=== PATIENT | female | born 1955 | race Caucasian/White ===

== ENCOUNTER 2021-11-05 12:30 | Inpatient (IN) | payer OTHER ==
[2021-11-05] MEDS ORDERED: ACETAMINOPHEN 1000 MG/100 ML BAG IVPB ONE (13:48)
[2021-11-05] MEDS ORDERED: ACETAMINOPHEN INJECTION 100 ML IVPB ONE (14:26)
[2021-11-05 14:43] LABS: BASO % 1.3 % (0-2.0); EOS % 0.6 % (0-4.5); HEMATOCRIT 38.9 % (32.4-45.2); HEMOGLOBIN 13.2 GM/dL (10.7-15.3); LYMPH % 17.1 % (8-40); MCH 32.7 pg (25.7-33.7); MEAN CELL VOLUME 96.1 fl (80-96); MEAN PLT VOLUME 7.6 fl (7.5-11.1); MONO % 6.2 % (3.8-10.2); NEUT % 74.8 % (42.8-82.8); PLATELET COUNT 674 10^3/uL (134-434); RBC 4.04 M/mm3 (3.60-5.2); RDW 13.9 % (11.6-15.6); WHITE BLOOD COUNT 10.8 K/mm3 (4.0-10.0)
[2021-11-05 14:53] LABS: INR 1.13 (0.83-1.09)
[2021-11-05 14:56] LABS: ACTIVATED PTT 30.5 SECONDS (25.2-36.5)
[2021-11-05 14:59] LABS: CHLORIDE 104 mmol/L (98-107); SODIUM 139 mmol/L (136-145)
[2021-11-05 15:03] LABS: BLOOD UREA NITROGEN 18.3 mg/dL (7-18); CALCIUM 10.8 mg/dL (8.5-10.1); CO2 26 mmol/L (21-32); GLUCOSE,RANDOM 107 mg/dL (74-106)
[2021-11-05 15:04] LABS: ALBUMIN 3.4 g/dl (3.4-5.0)
[2021-11-05 15:06] LABS: SGPT/ALT 37 U/L (13-61)
[2021-11-05 15:07] LABS: CREATININE 1.3 mg/dL (0.55-1.3); SGOT/AST 32 U/L (15-37)
[2021-11-05 15:08] LABS: BILIRUBIN,TOTAL 0.7 mg/dL (0.2-1); TOT PROT 7.6 g/dl (6.4-8.2)
[2021-11-05 15:09] LABS: ALK PHOS 103 U/L (45-117)
[2021-11-05 15:10] LABS: ANION GAP 9 MMOL/L (8-16)
[2021-11-05 16:02] LABS: EPI CELLS >36 /uL (0-25.1); HYALINE CASTS 4 /uL (0-3.1); PH,URINE 5.5 (5.0-8.0); URINE APPEARANCE CLEAR; URINE BACTERIA 51 /uL (0-1359); URINE BILIRUBIN NEGATIVE (NEGATIVE); URINE COLOR DK YELLOW; URINE GLUCOSE (UA) NEGATIVE (NEGATIVE); URINE KETONE TRACE (NEGATIVE); URINE LEUK ESTERASE TRACE (NEGATIVE); URINE NITRITE NEGATIVE (NEGATIVE); URINE PROTEIN NEGATIVE (NEGATIVE); URINE RBC 12 /uL (0-23.9); URINE UROBILINOGEN 0.2 mg/dL (0.2-1.0); URINE WBC 37 /uL (0-25.8)
[2021-11-05 16:08] LABS: HIV INTERPRETATION NEGATIVE (NEGATIVE)
[2021-11-05 16:30] LABS: CALCIUM 10.1 mg/dL (8.5-10.1)
[2021-11-05 16:31] LABS: BLOOD UREA NITROGEN 19.7 mg/dL (7-18)
[2021-11-05 16:34] LABS: CREATININE 1.3 mg/dL (0.55-1.3)
[2021-11-05 16:54] LABS: ERYTHROCYTE SEDIMENTATION RATE 87 mm/hr (0-30)
[2021-11-05] MEDS ORDERED: oxyCODONE HCL 5 MG TABLET ONE (18:35)
[2021-11-05] MEDS: oxyCODONE HCL 5 MG TABLET PO PRN (18:37)
[2021-11-05 23:56] VITALS: BMI 31.6
[2021-11-06] MEDS: oxyCODONE HCL 5 MG TABLET PO PRN ×3 (01:56→21:48)
[2021-11-06] MEDS: ACETAMINOPHEN 325 MG TABLET (FP) PO PRN (06:03)
[2021-11-06 10:12] LABS: BASO % 1.1 % (0-2.0); EOS % 1.2 % (0-4.5); HEMATOCRIT 35.4 % (32.4-45.2); HEMOGLOBIN 11.7 GM/dL (10.7-15.3); LYMPH % 23.8 % (8-40); MCH 31.8 pg (25.7-33.7); MCHC 33.1 g/dl (32.0-36.0); MEAN CELL VOLUME 96.3 fl (80-96); MEAN PLT VOLUME 7.9 fl (7.5-11.1); MONO % 7.5 % (3.8-10.2); NEUT % 66.4 % (42.8-82.8); PLATELET COUNT 603 10^3/uL (134-434); RBC 3.68 M/mm3 (3.60-5.2); RDW 13.7 % (11.6-15.6); WHITE BLOOD COUNT 9.1 K/mm3 (4.0-10.0)
[2021-11-06 10:43] LABS: BLOOD UREA NITROGEN 22.9 mg/dL (7-18); CALCIUM 9.4 mg/dL (8.5-10.1)
[2021-11-06 10:46] LABS: CREATININE 1.4 mg/dL (0.55-1.3); PHOSPHOROUS 4.2 mg/dL (2.5-4.9)
[2021-11-06] MEDS: VANCOMYCIN/WATER FOR INJ (PEG) 1,000 MG/200 ML BAG IVPB SCH (15:25)
[2021-11-06] MEDS: PIPERACILLIN/TAZOB 3.375 GM 3.375 GM in DEXTROSE 5%-WATER - 50 ML IVPB SCH ×2 (15:25→21:36)
[2021-11-06] MEDS ORDERED: LOSARTAN POTASSIUM 50 MG TABLET PO SCH (15:45)
[2021-11-06] MEDS ORDERED: VERAPAMIL HCL 240 MG E.R. TABLET PO SCH (15:45)
[2021-11-06] MEDS: CITALOPRAM HYDROBROMIDE 10 MG TABLET PO SCH (17:15)
[2021-11-06] MEDS: clonazePAM 0.5 MG TABLET PO SCH (21:37)
[2021-11-06] MEDS: ATORVASTATIN CA 20 MG TABLET (FP) PO SCH (21:37)
[2021-11-07] MEDS: PIPERACILLIN/TAZOB 3.375 GM 3.375 GM in DEXTROSE 5%-WATER - 50 ML IVPB SCH ×3 (01:30→19:06)
[2021-11-07] MEDS: VANCOMYCIN/WATER FOR INJ (PEG) 1,000 MG/200 ML BAG IVPB SCH ×2 (03:17→17:34)
[2021-11-07] MEDS: clonazePAM 0.5 MG TABLET PO SCH ×2 (09:13→21:18)
[2021-11-07] MEDS: VERAPAMIL HCL 240 MG E.R. TABLET PO SCH (09:14)
[2021-11-07] MEDS: oxyCODONE HCL 5 MG TABLET PO PRN ×2 (09:14→18:53)
[2021-11-07] MEDS: CITALOPRAM HYDROBROMIDE 10 MG TABLET PO SCH (09:14)
[2021-11-07] MEDS: SODIUM CHLORIDE 1,000 ML IV SCH (09:18)
[2021-11-07 16:29] LABS: HEMATOCRIT 34.1 % (32.4-45.2); HEMOGLOBIN 11.3 GM/dL (10.7-15.3); MCH 31.7 pg (25.7-33.7); MCHC 33.2 g/dl (32.0-36.0); MEAN CELL VOLUME 95.5 fl (80-96); MEAN PLT VOLUME 7.9 fl (7.5-11.1); PLATELET COUNT 573 10^3/uL (134-434); RBC 3.57 M/mm3 (3.60-5.2); RDW 13.6 % (11.6-15.6); WHITE BLOOD COUNT 10.5 K/mm3 (4.0-10.0)
[2021-11-07 16:55] LABS: BLOOD UREA NITROGEN 22.1 mg/dL (7-18); CALCIUM 9.3 mg/dL (8.5-10.1)
[2021-11-07 16:59] LABS: CREATININE 1.2 mg/dL (0.55-1.3)
[2021-11-07] MEDS: ATORVASTATIN CA 20 MG TABLET (FP) PO SCH (21:18)
[2021-11-08] MEDS: PIPERACILLIN/TAZOB 3.375 GM 3.375 GM in DEXTROSE 5%-WATER - 50 ML IVPB SCH ×2 (01:18→09:36)
[2021-11-08] MEDS: oxyCODONE HCL 5 MG TABLET PO PRN ×4 (03:17→21:58)
[2021-11-08] MEDS: VANCOMYCIN/WATER FOR INJ (PEG) 1,000 MG/200 ML BAG IVPB SCH (04:54)
[2021-11-08] MEDS: SODIUM CHLORIDE 1,000 ML IV SCH ×3 (04:54→21:49)
[2021-11-08 08:59] LABS: HEMATOCRIT 32.6 % (32.4-45.2); HEMOGLOBIN 11.2 GM/dL (10.7-15.3); MCH 33.3 pg (25.7-33.7); MCHC 34.4 g/dl (32.0-36.0); MEAN CELL VOLUME 96.8 fl (80-96); MEAN PLT VOLUME 7.6 fl (7.5-11.1); PLATELET COUNT 546 10^3/uL (134-434); RBC 3.37 M/mm3 (3.60-5.2); RDW 13.7 % (11.6-15.6); WHITE BLOOD COUNT 7.7 K/mm3 (4.0-10.0)
[2021-11-08] MEDS: LOSARTAN POTASSIUM 50 MG TABLET PO SCH (09:28)
[2021-11-08] MEDS: clonazePAM 0.5 MG TABLET PO SCH ×2 (09:28→21:00)
[2021-11-08 09:30] LABS: BLOOD UREA NITROGEN 14.2 mg/dL (7-18); CALCIUM 9.6 mg/dL (8.5-10.1); MAGNESIUM 2.1 mg/dL (1.8-2.4)
[2021-11-08 09:31] LABS: ALBUMIN 2.8 g/dl (3.4-5.0)
[2021-11-08 09:34] LABS: CREATININE 1.2 mg/dL (0.55-1.3); PHOSPHOROUS 3.5 mg/dL (2.5-4.9)
[2021-11-08 09:35] LABS: BILIRUBIN,TOTAL 0.6 mg/dL (0.2-1)
[2021-11-08] MEDS: CITALOPRAM HYDROBROMIDE 10 MG TABLET PO SCH (09:36)
[2021-11-08] MEDS: VERAPAMIL HCL 240 MG E.R. TABLET PO SCH (09:36)
[2021-11-08] MEDS ORDERED: LOSARTAN POTASSIUM 50 MG TABLET PO SCH (10:00)
[2021-11-08] MEDS: CEFAZOLIN SODIUM 2 GM in DEXTROSE 5%-WATER 100 ML IVPB SCH (18:44)
[2021-11-08] MEDS: ATORVASTATIN CA 20 MG TABLET (FP) PO SCH (21:00)
[2021-11-08] MEDS: ACETAMINOPHEN 325 MG TABLET (FP) PO PRN (21:00)
[2021-11-09] MEDS: CEFAZOLIN SODIUM 2 GM in DEXTROSE 5%-WATER 100 ML IVPB SCH ×3 (02:22→17:06)
[2021-11-09] MEDS: oxyCODONE HCL 5 MG TABLET PO PRN ×3 (06:11→20:23)
[2021-11-09 09:22] LABS: HEMATOCRIT 32.2 % (32.4-45.2); HEMOGLOBIN 10.9 GM/dL (10.7-15.3); MCH 32.6 pg (25.7-33.7); MCHC 33.7 g/dl (32.0-36.0); MEAN CELL VOLUME 96.6 fl (80-96); MEAN PLT VOLUME 7.7 fl (7.5-11.1); PLATELET COUNT 475 10^3/uL (134-434); RBC 3.34 M/mm3 (3.60-5.2); RDW 13.6 % (11.6-15.6); WHITE BLOOD COUNT 7.3 K/mm3 (4.0-10.0)
[2021-11-09] MEDS ORDERED: KETOROLAC TROMETHAMINE 15 MG/ML VIAL IVPUSH ONE (09:22)
[2021-11-09] MEDS: clonazePAM 0.5 MG TABLET PO SCH ×2 (09:35→21:18)
[2021-11-09] MEDS: CITALOPRAM HYDROBROMIDE 10 MG TABLET PO SCH (09:35)
[2021-11-09] MEDS: SODIUM CHLORIDE 1,000 ML IV SCH (09:36)
[2021-11-09] MEDS: LOSARTAN POTASSIUM 50 MG TABLET PO SCH (09:36)
[2021-11-09] MEDS: VERAPAMIL HCL 240 MG E.R. TABLET PO SCH (09:37)
[2021-11-09 09:53] LABS: CALCIUM 9.4 mg/dL (8.5-10.1)
[2021-11-09 09:54] LABS: ALBUMIN 2.6 g/dl (3.4-5.0); BLOOD UREA NITROGEN 11.1 mg/dL (7-18)
[2021-11-09 09:57] LABS: PHOSPHOROUS 3.4 mg/dL (2.5-4.9)
[2021-11-09 09:58] LABS: BILIRUBIN,TOTAL 0.4 mg/dL (0.2-1); TOT PROT 5.6 g/dl (6.4-8.2)
[2021-11-09] MEDS: ACETAMINOPHEN 325 MG TABLET (FP) PO PRN (11:30)
[2021-11-09] MEDS: ATORVASTATIN CA 20 MG TABLET (FP) PO SCH (21:17)
[2021-11-10] MEDS: CEFAZOLIN SODIUM 2 GM in DEXTROSE 5%-WATER 100 ML IVPB SCH ×3 (02:12→17:39)
[2021-11-10] MEDS: oxyCODONE HCL 5 MG TABLET PO PRN ×3 (05:20→18:29)
[2021-11-10 08:31] LABS: HEMATOCRIT 32.3 % (32.4-45.2); HEMOGLOBIN 10.8 GM/dL (10.7-15.3); MCH 32.1 pg (25.7-33.7); MCHC 33.4 g/dl (32.0-36.0); MEAN CELL VOLUME 96.2 fl (80-96); MEAN PLT VOLUME 7.7 fl (7.5-11.1); PLATELET COUNT 500 10^3/uL (134-434); RBC 3.36 M/mm3 (3.60-5.2); RDW 13.6 % (11.6-15.6)
[2021-11-10] MEDS: ENOXAPARIN NA (PORCINE) 40 MG/0.4 ML DISP.SYRIN SQ SCH (09:11)
[2021-11-10] MEDS: clonazePAM 0.5 MG TABLET PO SCH ×2 (09:11→21:52)
[2021-11-10 09:13] LABS: ALBUMIN 2.6 g/dl (3.4-5.0); BLOOD UREA NITROGEN 10.4 mg/dL (7-18); CALCIUM 9.6 mg/dL (8.5-10.1); MAGNESIUM 2.2 mg/dL (1.8-2.4)
[2021-11-10] MEDS: VERAPAMIL HCL 240 MG E.R. TABLET PO SCH (09:14)
[2021-11-10] MEDS: CITALOPRAM HYDROBROMIDE 10 MG TABLET PO SCH (09:14)
[2021-11-10 09:16] LABS: BILIRUBIN,TOTAL 0.4 mg/dL (0.2-1); CREATININE 0.9 mg/dL (0.55-1.3); PHOSPHOROUS 3.2 mg/dL (2.5-4.9); TOT PROT 5.8 g/dl (6.4-8.2)
[2021-11-10] MEDS: ACETAMINOPHEN 325 MG TABLET (FP) PO PRN (21:52)
[2021-11-10] MEDS: ATORVASTATIN CA 20 MG TABLET (FP) PO SCH (21:52)
[2021-11-11] MEDS: oxyCODONE HCL 5 MG TABLET PO PRN ×4 (01:52→21:32)
[2021-11-11] MEDS: CEFAZOLIN SODIUM 2 GM in DEXTROSE 5%-WATER 100 ML IVPB SCH ×3 (01:52→18:02)
[2021-11-11] MEDS ORDERED: KETOROLAC TROMETHAMINE 15 MG/ML VIAL IVPUSH PRN (09:00)
[2021-11-11] MEDS: clonazePAM 0.5 MG TABLET PO SCH ×2 (09:16→21:28)
[2021-11-11] MEDS: VERAPAMIL HCL 240 MG E.R. TABLET PO SCH (09:17)
[2021-11-11] MEDS: ENOXAPARIN NA (PORCINE) 40 MG/0.4 ML DISP.SYRIN SQ SCH (09:17)
[2021-11-11] MEDS: CITALOPRAM HYDROBROMIDE 10 MG TABLET PO SCH (09:17)
[2021-11-11 09:33] LABS: HEMOGLOBIN 11.5 GM/dL (10.7-15.3); MCH 31.5 pg (25.7-33.7); MCHC 32.9 g/dl (32.0-36.0); MEAN CELL VOLUME 95.6 fl (80-96); PLATELET COUNT 552 10^3/uL (134-434); RBC 3.66 M/mm3 (3.60-5.2); RDW 13.5 % (11.6-15.6); WHITE BLOOD COUNT 8.9 K/mm3 (4.0-10.0)
[2021-11-11 10:21] LABS: CALCIUM 10.1 mg/dL (8.5-10.1)
[2021-11-11 10:22] LABS: BLOOD UREA NITROGEN 12.4 mg/dL (7-18); MAGNESIUM 2.2 mg/dL (1.8-2.4)
[2021-11-11 10:25] LABS: CREATININE 0.9 mg/dL (0.55-1.3); PHOSPHOROUS 3.5 mg/dL (2.5-4.9)
[2021-11-11 10:26] LABS: TOT PROT 6.5 g/dl (6.4-8.2)
[2021-11-11 10:28] LABS: BILIRUBIN,TOTAL 0.6 mg/dL (0.2-1)
[2021-11-11] MEDS: KETOROLAC TROMETHAMINE 15 MG/ML VIAL IVPUSH PRN ×2 (12:05→18:03)
[2021-11-11] MEDS: ACETAMINOPHEN 325 MG TABLET (FP) PO PRN (21:28)
[2021-11-11] MEDS: ATORVASTATIN CA 20 MG TABLET (FP) PO SCH (21:28)
[2021-11-12] MEDS: CEFAZOLIN SODIUM 2 GM in DEXTROSE 5%-WATER 100 ML IVPB SCH ×3 (02:49→17:58)
[2021-11-12] MEDS: ACETAMINOPHEN 325 MG TABLET (FP) PO PRN ×2 (05:06→13:36)
[2021-11-12] MEDS: oxyCODONE HCL 5 MG TABLET PO PRN ×3 (05:06→19:40)
[2021-11-12 07:36] LABS: HEMATOCRIT 30.9 % (32.4-45.2); HEMOGLOBIN 10.7 GM/dL (10.7-15.3); MCHC 34.5 g/dl (32.0-36.0); MEAN CELL VOLUME 95.5 fl (80-96); MEAN PLT VOLUME 7.2 fl (7.5-11.1); PLATELET COUNT 416 10^3/uL (134-434); RBC 3.24 M/mm3 (3.60-5.2); RDW 13.4 % (11.6-15.6); WHITE BLOOD COUNT 6.1 K/mm3 (4.0-10.0)
[2021-11-12 07:57] LABS: ALBUMIN 2.6 g/dl (3.4-5.0)
[2021-11-12 07:58] LABS: BILIRUBIN,TOTAL 0.5 mg/dL (0.2-1)
[2021-11-12 07:59] LABS: TOT PROT 5.7 g/dl (6.4-8.2)
[2021-11-12 08:00] LABS: BLOOD UREA NITROGEN 11.1 mg/dL (7-18)
[2021-11-12 08:01] LABS: CALCIUM 9.3 mg/dL (8.5-10.1); CREATININE 0.9 mg/dL (0.55-1.3); PHOSPHOROUS 3.3 mg/dL (2.5-4.9)
[2021-11-12] MEDS: KETOROLAC TROMETHAMINE 15 MG/ML VIAL IVPUSH PRN ×2 (08:54→17:15)
[2021-11-12] MEDS: VERAPAMIL HCL 240 MG E.R. TABLET PO SCH (10:13)
[2021-11-12] MEDS: clonazePAM 0.5 MG TABLET PO SCH ×2 (10:13→21:30)
[2021-11-12] MEDS: CITALOPRAM HYDROBROMIDE 10 MG TABLET PO SCH (10:13)
[2021-11-12] MEDS: ENOXAPARIN NA (PORCINE) 40 MG/0.4 ML DISP.SYRIN SQ SCH (12:04)
[2021-11-12] MEDS: ATORVASTATIN CA 20 MG TABLET (FP) PO SCH (21:30)
[2021-11-12] MEDS: GABAPENTIN 100 MG CAPSULE PO SCH (21:31)
[2021-11-13] MEDS: CEFAZOLIN SODIUM 2 GM in DEXTROSE 5%-WATER 100 ML IVPB SCH ×3 (01:52→17:02)
[2021-11-13] MEDS: oxyCODONE HCL 5 MG TABLET PO PRN ×3 (02:46→18:16)
[2021-11-13] MEDS: GABAPENTIN 100 MG CAPSULE PO SCH ×3 (06:10→22:01)
[2021-11-13 08:25] LABS: HEMATOCRIT 33.8 % (32.4-45.2); MCH 30.6 pg (25.7-33.7); MCHC 32.4 g/dl (32.0-36.0); MEAN CELL VOLUME 94.5 fl (80-96); MEAN PLT VOLUME 8.2 fl (7.5-11.1); PLATELET COUNT 463 10^3/uL (134-434); RBC 3.58 M/mm3 (3.60-5.2); RDW 13.4 % (11.6-15.6); WHITE BLOOD COUNT 6.5 K/mm3 (4.0-10.0)
[2021-11-13 08:51] LABS: ALBUMIN 2.7 g/dl (3.4-5.0); BLOOD UREA NITROGEN 9.1 mg/dL (7-18); CALCIUM 9.5 mg/dL (8.5-10.1)
[2021-11-13 08:52] LABS: MAGNESIUM 2.1 mg/dL (1.8-2.4)
[2021-11-13 08:55] LABS: CREATININE 0.8 mg/dL (0.55-1.3); PHOSPHOROUS 2.8 mg/dL (2.5-4.9)
[2021-11-13 08:56] LABS: BILIRUBIN,TOTAL 0.5 mg/dL (0.2-1); TOT PROT 6.1 g/dl (6.4-8.2)
[2021-11-13] MEDS: ENOXAPARIN NA (PORCINE) 40 MG/0.4 ML DISP.SYRIN SQ SCH (09:39)
[2021-11-13] MEDS: VERAPAMIL HCL 240 MG E.R. TABLET PO SCH (09:40)
[2021-11-13] MEDS: clonazePAM 0.5 MG TABLET PO SCH ×2 (09:40→22:01)
[2021-11-13] MEDS: CITALOPRAM HYDROBROMIDE 10 MG TABLET PO SCH (09:40)
[2021-11-13] MEDS ORDERED: SODIUM CHLORIDE NASAL SPRAY 44 ML BOTTLE NS PRN (16:30)
[2021-11-13] MEDS: ATORVASTATIN CA 20 MG TABLET (FP) PO SCH (22:01)
[2021-11-14] MEDS: CEFAZOLIN SODIUM 2 GM in DEXTROSE 5%-WATER 100 ML IVPB SCH ×3 (02:42→17:21)
[2021-11-14] MEDS: oxyCODONE HCL 5 MG TABLET PO PRN ×4 (03:28→22:27)
[2021-11-14] MEDS: GABAPENTIN 100 MG CAPSULE PO SCH ×3 (06:56→22:27)
[2021-11-14 07:52] LABS: HEMOGLOBIN 11.1 GM/dL (10.7-15.3); MCH 31.9 pg (25.7-33.7); MCHC 33.5 g/dl (32.0-36.0); MEAN CELL VOLUME 95.1 fl (80-96); PLATELET COUNT 369 10^3/uL (134-434); RBC 3.47 M/mm3 (3.60-5.2); RDW 13.5 % (11.6-15.6); WHITE BLOOD COUNT 5.8 K/mm3 (4.0-10.0)
[2021-11-14 08:09] LABS: CALCIUM 9.3 mg/dL (8.5-10.1)
[2021-11-14 08:10] LABS: ALBUMIN 2.8 g/dl (3.4-5.0); BLOOD UREA NITROGEN 11.2 mg/dL (7-18); MAGNESIUM 2.1 mg/dL (1.8-2.4)
[2021-11-14 08:13] LABS: PHOSPHOROUS 2.8 mg/dL (2.5-4.9)
[2021-11-14 08:14] LABS: BILIRUBIN,TOTAL 0.4 mg/dL (0.2-1)
[2021-11-14 08:15] LABS: CREATININE 0.9 mg/dL (0.55-1.3); TOT PROT 6.1 g/dl (6.4-8.2)
[2021-11-14] MEDS: ENOXAPARIN NA (PORCINE) 40 MG/0.4 ML DISP.SYRIN SQ SCH (09:07)
[2021-11-14] MEDS: CITALOPRAM HYDROBROMIDE 10 MG TABLET PO SCH (09:08)
[2021-11-14] MEDS: clonazePAM 0.5 MG TABLET PO SCH ×2 (09:08→22:27)
[2021-11-14] MEDS: VERAPAMIL HCL 240 MG E.R. TABLET PO SCH (09:08)
[2021-11-14] MEDS: ATORVASTATIN CA 20 MG TABLET (FP) PO SCH (22:27)
[2021-11-15] MEDS: CEFAZOLIN SODIUM 2 GM in DEXTROSE 5%-WATER 100 ML IVPB SCH ×3 (01:06→16:59)
[2021-11-15] MEDS: oxyCODONE HCL 5 MG TABLET PO PRN ×3 (06:26→20:26)
[2021-11-15] MEDS: GABAPENTIN 100 MG CAPSULE PO SCH ×3 (06:28→22:12)
[2021-11-15 09:08] LABS: HEMATOCRIT 36.1 % (32.4-45.2); HEMOGLOBIN 11.7 GM/dL (10.7-15.3); MCH 31.2 pg (25.7-33.7); MCHC 32.5 g/dl (32.0-36.0); MEAN PLT VOLUME 7.3 fl (7.5-11.1); PLATELET COUNT 423 10^3/uL (134-434); RBC 3.76 M/mm3 (3.60-5.2); RDW 13.6 % (11.6-15.6); WHITE BLOOD COUNT 7.5 K/mm3 (4.0-10.0)
[2021-11-15] MEDS: ENOXAPARIN NA (PORCINE) 40 MG/0.4 ML DISP.SYRIN SQ SCH (09:16)
[2021-11-15] MEDS: clonazePAM 0.5 MG TABLET PO SCH ×2 (09:17→22:12)
[2021-11-15] MEDS: CITALOPRAM HYDROBROMIDE 10 MG TABLET PO SCH (09:18)
[2021-11-15] MEDS: VERAPAMIL HCL 240 MG E.R. TABLET PO SCH (09:18)
[2021-11-15 09:36] LABS: ALBUMIN 3.2 g/dl (3.4-5.0); BLOOD UREA NITROGEN 11.9 mg/dL (7-18); CALCIUM 9.9 mg/dL (8.5-10.1); CREATININE 1.1 mg/dL (0.55-1.3); MAGNESIUM 1.9 mg/dL (1.8-2.4)
[2021-11-15 09:38] LABS: BILIRUBIN,TOTAL 0.4 mg/dL (0.2-1); PHOSPHOROUS 2.9 mg/dL (2.5-4.9)
[2021-11-15 09:40] LABS: TOT PROT 6.6 g/dl (6.4-8.2)
[2021-11-15] MEDS: DOCUSATE SODIUM 100 MG CAPSULE (FP) PO SCH (22:12)
[2021-11-15] MEDS: ATORVASTATIN CA 20 MG TABLET (FP) PO SCH (22:12)
[2021-11-15] MEDS: ACETAMINOPHEN 325 MG TABLET (FP) PO PRN (22:19)
[2021-11-16] MEDS: CEFAZOLIN SODIUM 2 GM in DEXTROSE 5%-WATER 100 ML IVPB SCH ×3 (01:14→17:20)
[2021-11-16] MEDS: GABAPENTIN 100 MG CAPSULE PO SCH ×4 (05:36→21:09)
[2021-11-16 08:35] LABS: HEMATOCRIT 34.1 % (32.4-45.2); HEMOGLOBIN 11.5 GM/dL (10.7-15.3); MCHC 33.8 g/dl (32.0-36.0); MEAN CELL VOLUME 94.8 fl (80-96); MEAN PLT VOLUME 7.2 fl (7.5-11.1); PLATELET COUNT 376 10^3/uL (134-434); RDW 13.4 % (11.6-15.6); WHITE BLOOD COUNT 6.1 K/mm3 (4.0-10.0)
[2021-11-16 08:57] LABS: BLOOD UREA NITROGEN 10.1 mg/dL (7-18); CALCIUM 9.7 mg/dL (8.5-10.1)
[2021-11-16 08:59] LABS: MAGNESIUM 2.2 mg/dL (1.8-2.4)
[2021-11-16 09:01] LABS: PHOSPHOROUS 2.9 mg/dL (2.5-4.9)
[2021-11-16] MEDS: oxyCODONE HCL 5 MG TABLET PO PRN ×4 (09:58→22:05)
[2021-11-16] MEDS: clonazePAM 0.5 MG TABLET PO SCH ×2 (09:58→21:06)
[2021-11-16] MEDS: CITALOPRAM HYDROBROMIDE 10 MG TABLET PO SCH (09:58)
[2021-11-16] MEDS: VERAPAMIL HCL 240 MG E.R. TABLET PO SCH (10:00)
[2021-11-16] MEDS: ENOXAPARIN NA (PORCINE) 40 MG/0.4 ML DISP.SYRIN SQ SCH (10:13)
[2021-11-16] MEDS: DOCUSATE SODIUM 100 MG CAPSULE (FP) PO SCH (21:05)
[2021-11-16] MEDS: ATORVASTATIN CA 20 MG TABLET (FP) PO SCH (21:07)
[2021-11-17] MEDS: CEFAZOLIN SODIUM 2 GM in DEXTROSE 5%-WATER 100 ML IVPB SCH ×3 (02:43→17:46)
[2021-11-17] MEDS: GABAPENTIN 100 MG CAPSULE PO SCH ×3 (06:10→22:12)
[2021-11-17] MEDS: oxyCODONE HCL 5 MG TABLET PO PRN ×4 (07:09→23:02)
[2021-11-17] MEDS: VERAPAMIL HCL 240 MG E.R. TABLET PO SCH (09:12)
[2021-11-17] MEDS: ENOXAPARIN NA (PORCINE) 40 MG/0.4 ML DISP.SYRIN SQ SCH (09:12)
[2021-11-17] MEDS: clonazePAM 0.5 MG TABLET PO SCH ×2 (09:12→22:12)
[2021-11-17] MEDS: CITALOPRAM HYDROBROMIDE 10 MG TABLET PO SCH (09:12)
[2021-11-17 09:19] LABS: HEMATOCRIT 32.9 % (32.4-45.2); HEMOGLOBIN 10.7 GM/dL (10.7-15.3); MCH 30.9 pg (25.7-33.7); MCHC 32.5 g/dl (32.0-36.0); MEAN PLT VOLUME 7.4 fl (7.5-11.1); PLATELET COUNT 358 10^3/uL (134-434); RBC 3.46 M/mm3 (3.60-5.2); RDW 13.3 % (11.6-15.6); WHITE BLOOD COUNT 7.3 K/mm3 (4.0-10.0)
[2021-11-17 09:44] LABS: CALCIUM 9.5 mg/dL (8.5-10.1)
[2021-11-17 09:45] LABS: BLOOD UREA NITROGEN 8.8 mg/dL (7-18)
[2021-11-17 09:46] LABS: MAGNESIUM 2.1 mg/dL (1.8-2.4)
[2021-11-17 09:48] LABS: CREATININE 0.9 mg/dL (0.55-1.3)
[2021-11-17] MEDS: ACETAMINOPHEN 325 MG TABLET (FP) PO PRN ×2 (11:25→17:46)
[2021-11-17] MEDS: DOCUSATE SODIUM 100 MG CAPSULE (FP) PO SCH ×2 (11:27→22:12)
[2021-11-17] MEDS: ATORVASTATIN CA 20 MG TABLET (FP) PO SCH (22:12)
[2021-11-18] MEDS: CEFAZOLIN SODIUM 2 GM in DEXTROSE 5%-WATER 100 ML IVPB SCH ×3 (01:15→17:19)
[2021-11-18] MEDS: GABAPENTIN 100 MG CAPSULE PO SCH ×3 (05:53→21:51)
[2021-11-18] MEDS: ACETAMINOPHEN 325 MG TABLET (FP) PO PRN ×2 (05:53→21:49)
[2021-11-18 08:23] LABS: BASO % 0.6 % (0-2.0); EOS % 3.4 % (0-4.5); HEMATOCRIT 34.5 % (32.4-45.2); HEMOGLOBIN 11.5 GM/dL (10.7-15.3); LYMPH % 19.1 % (8-40); MCH 31.9 pg (25.7-33.7); MCHC 33.4 g/dl (32.0-36.0); MEAN CELL VOLUME 95.6 fl (80-96); MEAN PLT VOLUME 7.1 fl (7.5-11.1); MONO % 6.1 % (3.8-10.2); NEUT % 70.8 % (42.8-82.8); PLATELET COUNT 334 10^3/uL (134-434); RBC 3.61 M/mm3 (3.60-5.2); RDW 13.4 % (11.6-15.6); WHITE BLOOD COUNT 7.2 K/mm3 (4.0-10.0)
[2021-11-18] MEDS: DOCUSATE SODIUM 100 MG CAPSULE (FP) PO SCH ×2 (10:01→21:50)
[2021-11-18] MEDS: ENOXAPARIN NA (PORCINE) 40 MG/0.4 ML DISP.SYRIN SQ SCH (10:01)
[2021-11-18] MEDS: CITALOPRAM HYDROBROMIDE 10 MG TABLET PO SCH (10:02)
[2021-11-18] MEDS: VERAPAMIL HCL 240 MG E.R. TABLET PO SCH (10:02)
[2021-11-18] MEDS: clonazePAM 0.5 MG TABLET PO SCH ×2 (10:02→21:50)
[2021-11-18] MEDS: oxyCODONE HCL 5 MG TABLET PO PRN ×3 (10:15→20:51)
[2021-11-18] MEDS: ATORVASTATIN CA 20 MG TABLET (FP) PO SCH (21:50)
[2021-11-18 22:12] VITALS: RESP 20
[2021-11-19] MEDS: CEFAZOLIN SODIUM 2 GM in DEXTROSE 5%-WATER 100 ML IVPB SCH ×2 (01:02→09:13)
[2021-11-19] MEDS: GABAPENTIN 100 MG CAPSULE PO SCH (06:14)
[2021-11-19] MEDS: DOCUSATE SODIUM 100 MG CAPSULE (FP) PO SCH (09:14)
[2021-11-19] MEDS: ENOXAPARIN NA (PORCINE) 40 MG/0.4 ML DISP.SYRIN SQ SCH (09:14)
[2021-11-19] MEDS: ACETAMINOPHEN 325 MG TABLET (FP) PO PRN (09:14)
[2021-11-19] MEDS: oxyCODONE HCL 5 MG TABLET PO PRN (09:17)
[2021-11-19] MEDS: clonazePAM 0.5 MG TABLET PO SCH (09:18)
[2021-11-19] MEDS: CITALOPRAM HYDROBROMIDE 10 MG TABLET PO SCH (09:43)
[2021-11-19] MEDS: VERAPAMIL HCL 240 MG E.R. TABLET PO SCH ×2 (09:43→10:16)
[2021-11-19 10:18] VITALS: BP 100/75; PULSE 85; TEMP 98.4
== END 2021-11-19 13:13 | DRG 862 ==
LOC: JER 12:30 → JERBED 15:58 → J7W 22:58
PROVIDERS: ADMIT Internal Medicine; ATTEND Internal Medicine
PROC: 009U3ZZ Drainage of Spinal Canal, Percutaneous Approach (ICD-10-PCS; 2021-11-06)
PROC: 02HV33Z Insertion of Infusion Device into Superior Vena Cava, Percutaneous Approach (ICD-10-PCS; principal; 2021-11-12)
DX: T81.49XA Infection following a procedure, other surgical site, initial encounter (principal); G06.2 Extradural and subdural abscess, unspecified; U07.1 COVID-19; N39.0 Urinary tract infection, site not specified; M46.20 Osteomyelitis of vertebra, site unspecified; I10 Essential (primary) hypertension; D47.3 Essential (hemorrhagic) thrombocythemia; E87.5 Hyperkalemia; D72.829 Elevated white blood cell count, unspecified; B96.20 Unspecified Escherichia coli [E. coli] as the cause of diseases classified elsewhere; E66.9 Obesity, unspecified; K76.0 Fatty (change of) liver, not elsewhere classified; Y83.9 Surgical procedure, unspecified as the cause of abnormal reaction of the patient, or of later complication, without mention of misadventure at the time of the procedure
CPT/HCPCS: 10005; 36415; 36569; 72100-TC-FY; 72148-TC; 72149-TC; 74177-TC; 80048; 80053; 81003; 83036; 83735; 84100; 84132; 85025; 85027; 85610; 85651; 85730; 86140; 86850; 86900; 86901; 87040; 87070; 87075; 87086; 87186; 87205; 87389; 93005; 93010; 97116-GP; 99285-25; C9803-CS; G0480; U0003; U0005